=== PATIENT | female | born 1995 | race Hispanic/Latino ===

== ENCOUNTER → 2020-01-06 | Day surgery (SDC) | payer BC ==
[~2020-01-06] MED LIST: FENTANYL CITRATE/PF 100MCG/2 ML INJ ONE; MIDAZOLAM HCL 2 MG/2 ML VIAL ONE; OMEPRAZOLE40 MG PO; PROPOFOL IV EMULSION 10 MG/ML 50 ML VIAL ONE; SUCRALFATE1 GM PO
--- OUTSIDE RECORDS SUMMARY | 2020-01-06 09:36 | XMS REPORT ---
Author Author [facility] Address Unknown Phone Unavailable Care Team Providers Care News Production Supervisor Name Role Phone MS BRIEN RODRIGUEZ Unavailable Unavailable DR DOMINICK PATEL Unavailable Unavailable Problems This patient has no known problems. Allergies, Adverse Reactions, Alerts This patient has no known allergies or adverse reactions. Medications This patient has no known medications. Encounters Start Date/Time End Date/Time Encounter Type Admission Type Attending [facility] Facility Care Department Encounter ID 2017-06-24 08:06:00 2017-08-01 23:59:[address] [facility] PT [id number] Results Test Description Test Time Test Comments Text Results Atomic Results Result Comments URINE MONOCLONAL METRO 2017-06-20 13:29:00 PREG UR (test code=PGU) NEGATIVE NEGATIVE
[2020-01-06 13:20] VITALS: BP 110/80
--- NOTE | 2020-01-06 22:32 | Operative Report ---
DATE OF PROCEDURE: 01/06/2020 SURGEON: Curt Sharp MD PROCEDURES: EGD with polypectomy and biopsies. INDICATIONS FOR EGD: Upper abdominal pain, bloating. MEDICATIONS: The patient was done under MAC, please see anesthesiologist's note. PROCEDURE IN DETAIL: With the patient in left lateral decubitus position flexible fiberoptic Olympus gastroscope was introduced into the esophagus under direct visualization without any difficulty. The mucosa overlying the distal esophagus revealed some patchy erythema. The scope was then advanced with ease into the stomach. Mucosa overlying the antrum and the body revealed some diffuse erythema and [id number] edema and biopsies were obtained and sent to stain for H. pylori. There were some hyperplastic-appearing polyps in the body of the stomach and somewhat partially excised with the cold biopsy forceps. Pylorus was of normal contour and shape was intubated with ease and the scope was advanced all the way to the second portion of the duodenum. Biopsies were obtained from the proximal second portion and duodenal bulb to rule out sprue. The scope was then withdrawn back into the stomach and retroflexed. Mucosa overlying the fundus and cardia appeared to be within normal limits. The scope was then straightened out. The stomach was decompressed. The scope was subsequently withdrawn. The patient tolerated the procedure well. IMPRESSION: 1. Distal esophagitis, mild. 2. Gastritis, biopsied, biopsies sent to stain for H. pylori. 3. Gastric polyps, hyperplastic-appearing, body, some partially excised with the cold biopsy forceps. 4. Rule out sprue. PLAN: Follow up histology. Increase omeprazole to 40 mg one p.o. a.c. b.i.d. Continue Carafate 1 g p.o. a.c. t.i.d. and at bedtime. Curt Sharp MD [place]/[facility] /[id number] cc: MD Shay Khan MD
== END | disposition home or self-care (01) ==
LOC: OR 09:34
PROVIDERS: ATTEND Internal Medicine Gastroenterology
DX: K29.60 Other gastritis without bleeding (principal); K31.7 Polyp of stomach and duodenum; K21.9 Gastro-esophageal reflux disease without esophagitis; K20.9 Esophagitis, unspecified; Z68.32 Body mass index [BMI] 32.0-32.9, adult
CPT/HCPCS: 43239; 81025; J2250; J2704; J3010